=== PATIENT | female | born 1970 | race Caucasian/White ===

== ENCOUNTER → 2018-07-11 21:16 | Outpatient (REF) | payer OTHER, SELFPAY ==
[2018-07-14 21:23] LABS: Estrogen 402.5 pg/mL
[2018-07-16 03:23] LABS: Testosterone Free 2.6 pg/mL (0.1-6.4); Testosterone Total 22 ng/dL (2-45)
[2018-07-16 17:05] LABS: Progesterone < 0.5 ng/mL
== END ==
LOC: LAB 21:16
PROVIDERS: Visit Provider Naturopath
DX: F90.0 Attention-deficit hyperactivity disorder, predominantly inattentive type (principal); G47.00 Insomnia, unspecified; N95.1 Menopausal and female climacteric states
CPT/HCPCS: 36415; 82672; 84144; 84402; 84403